=== PATIENT | female | born 1950 | race Caucasian/White ===

== ENCOUNTER → 2018-04-12 | Outpatient (CLI) | payer MEDICARE, OTHER | LOC: LAB 08:35 | PROVIDERS: ATTEND Internal Medicine Endocrinology, Diabetes & Metabolism | DX: M81.0 Age-related osteoporosis without current pathological fracture (principal) | CPT/HCPCS: 36415; 82024; 82533 ==

== ENCOUNTER → 2018-05-18 | Outpatient (CLI) | payer MEDICARE, OTHER | LOC: LAB 08:42 | PROVIDERS: ATTEND Family Medicine | DX: R73.09 Other abnormal glucose (principal); E03.9 Hypothyroidism, unspecified | CPT/HCPCS: 36415; 82040; 82247; 82310; 82374; 82435; 82565; 82947; 83036; 84075; 84132; 84155; 84295; 84439; 84443; 84450; 84460; 84481; 84482; 84520 ==

== ENCOUNTER → 2019-01-15 | Outpatient (CLI) | payer MEDICARE, OTHER | LOC: LAB 14:05 | PROVIDERS: ATTEND Family Medicine | DX: E03.9 Hypothyroidism, unspecified (principal); R53.83 Other fatigue | CPT/HCPCS: 36415; 82306; 82607; 84439; 84443; 84481; 84482 ==